=== PATIENT | female | born 1930 | race Caucasian/White ===

== ENCOUNTER → 2021-03-03 | Outpatient (CLI) | payer MEDICARE ==
[~2021-03-03] MED LIST: ASPI-1197 PO; CHOL200013 PO; FOLI1TAB15 PO; FURO40TA5 PO; LOSA50TA64 PO; METO50TA18 PO; PRAV80TA21 PO; WARF-67 PO
== END | disposition home or self-care (01) ==
LOC: SHCH 15:15
PROVIDERS: ATTEND Internal Medicine Cardiovascular Disease
DX: I65.23 Occlusion and stenosis of bilateral carotid arteries (principal)
CPT/HCPCS: 93880